=== PATIENT | female | born 1995 ===

== ENCOUNTER 2022-02-04 17:31 | Emergency (ER) | payer SELFPAY ==
[~2022-02-04] VITALS: Ht 160 cm; Wt 59.1 kg
[2022-02-04 17:42] VITALS: BP 103/68
== END 2022-02-04 19:10 | disposition left against medical advice (07) ==
LOC: EMS 17:31
DX: Z53.21 Procedure and treatment not carried out due to patient leaving prior to being seen by health care provider (principal)